=== PATIENT | female | born 2005 | race Caucasian/White ===

== ENCOUNTER 2024-04-04 21:02 | Emergency (ER) | payer OTHER, SELFPAY ==
[2024-04-04 21:03] VITALS: BP 114/73; PULSE 101; RESP 15; TEMP 36.8; O2SAT 100
[2024-04-04 21:04] VITALS: BMI 20.4
--- NOTE | 2024-04-04 21:42 | ED.VIS.LOWEX ---
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 Was playing field hockey tonight when a ball hit off her medial malleolus of her left ankle causing a laceration. Tetanus is up-to-date. This occurred 1 to 2 hours ago. She was able to finish the game. Chief Complaint: Laceration Informant: patient and parent Occured/Mechanism Mechanism/Context: Yes blunt trauma Onset/Context/Timing Onset: Today and Hours Context: Sudden Onset Timing: Continuous Quality of Pain: Sharp Current Severity: Mild Maximum Severity: Mild Associated Symptoms Associated Symptoms: Negative for Parasthesia, Weakness or Loss of Funtion Narrative Narrative: 19-year-old left ankle laceration medially. Hit with a field hockey ball playing a game. Tetanus Immunization: 5-10 years Prior similar symptoms: No Recent Illness/Hospitalization: No PFSH PFS Medical History Scoliosis Costal chondritis Home Medications ?Medication ?Instructions ?Recorded ?Last Taken ?Type meloxicam 15 mg tablet 15 mg PO DAILY 04/04/24 Unknown History spironolactone 100 mg tablet 100 mg PO DAILY 04/04/24 Unknown History Allergy/AdvReac Type Severity Reaction Status Date / Time No Known Allergies Allergy Verified 04/04/24 21:03 Social History Smoking Status: Never smoker ROS ROS ED ROS Narrative Denies recent illness. Constitutional Constitutional ED: Denies chills or fever(s) Eyes Eyes: Denies blurry vision ENT ENT ED: Denies ear pain Cardiovascular Cardiovascular: Denies chest pain Gastrointestinal Gastrointestinal: Denies abdominal pain Genitourinary Genitourinary ED: Denies dysuria or hematuria Musculoskeletal Musculoskeletal: Denies arthralgias or back pain Integumentary Denies abscess Neurologic Neurologic: Denies headache(s) Psychiatric Psychiatric: Denies anxiety or depression Endocrine Endocrinology: Denies polydipsia or polyphagia Hematologic/Lymphatic Hematologic/Lymphatic: Denies easy bleeding or easy bruising Allergic/Immunologic Allergic/Immunologic ED: Denies mouth swelling, tongue swelling or urticaria EXAM Physical Exam Narrative Exam Narrative: 19-year-old female vital signs are stable afebrile. H EENT exam unremarkable. Neck nontender no lymphadenopathy. Lungs clear to auscultation. Heart regular rhythm no murmur. Abdomen soft. Moving all 4 extremities. Neurovascular intact. Left ankle medial malleolus has about a 1 to 2 inch laceration on the medial aspect. Will need to be repaired. Minimal bleeding. No signal hematoma. No bony deformity. Full flexion extension of the ankle. Normal DP pulse. Able to wiggle her toes. Normal touch sensation. Achilles tendon intact. No bony deformity. No significant swelling. Const Vital Signs: 04/04/24 21:03 Temperature 98.2 F Temperature Source Oral Pulse Rate 101 H Respiratory Rate 15 Blood Pressure 114/73 Blood Pressure Mean 86 Pulse Ox 100 Oxygen Delivery Method Room Air Positive well nourished and well developed; Negative for obese, cachectic, contractures or unkempt General Appearance ED: well developed and NAD; Negative for unkempt, cachectic or contractures Nutritional Appearance: Negative for cachectic or obese HEENT Reports moist mucous membranes normocephalic and atraumatic; Negative for trauma or tenderness Eyes PERRL Neck full ROM and supple Thyroid: Negative for tender or other Lymph Lymphatic: Negative for other Chest Wall inspection of chest normal and palpation of chest normal Resp normal respiratory effort, no retractions and clear to auscultation bilaterally Auscultation: Negative for rales, rhonchi, wheezes or diminished lung sounds Cardio regular rhythm, S1 normal heart sound, S2 normal heart sound and no murmurs GI non-tender, non-distended and no masses Palpation: soft; Negative for tender or guarding Back/Spine no CVA tenderness Extremity normal to inspection and full ROM Extremity Narrative: Left ankle medial malleolus 1 to 2 inch laceration needs repaired. Otherwise normal range of motion. No deformity. No sign of swelling. Neurovascularly intact. Neuro oriented x3, CN's II-XII intact bilaterally and moves all extremities Sensorium / Orientation: alert, oriented to person, oriented to place and oriented to time Psych mental status grossly normal Appearance: Negative for unkempt Mood & Affect: Negative for anxious Skin no wounds Lesions: no lesions Rashes: no rashes Trauma: laceration MDM MDM MDM Narrative Medical decision making narrative: 19-year-old left medial malleolus laceration needs repaired. Let. Clean. Explored. Irrigated. Locally anesthetized with lidocaine. Repaired using 4-0 Ethilon suture. Patient does not need any imaging. I discussed that with her and her mom. They are comfortable with no x-rays being obtained. History & Record Review Discussion w/independent historian: Patient and Family Procedures Lacerations Left ankle medial malleolus laceration repair:: Length: 1.5 in Depth: Sub Q Shape: Linear Prep: Shure-Clens Laceration repair: Lidocaine, Local, Skin sutures and Wound explored Number of Sutures/[place]: 3 Suture Information: Ethilon, Simple and 4-0 Comment: Left medial malleolus laceration. Let applied. Then local anesthetized lidocaine. Pain with Shur-Clens. Washed and irrigated with saline. Explored. Closed using 3 simple interrupted 4-0 Ethilon sutures. Proper hemostasis wound closure obtained. Patient tolerated procedure well. Instructed on wound care and suture removal in 10 days. Discharge Plan Triage Chief Complaint: Laceration ED Provider: Braon Joseph Dx/Rx/DC Orders Clinical Impression: Laceration of ankle, left Instructions: ED Laceration, Foot: All Closures Prescriptions: No Action meloxicam 15 mg tablet 15 mg PO DAILY spironolactone 100 mg tablet 100 mg PO DAILY Primary Care Provider: Hermilo Stone,Out of Referrals: Hermilo Stone,Out of [Primary Care Provider] - Activity Restrictions/Additional Instructions: Keep dry and clean. You can shower but dried off well when you are done. Apply antibiotic ointment twice daily. Tylenol and/or Motrin for pain. Do not let it soak in water. Do not soak in the bathtub. Stitches out in 10 to 14 days. Watch for any signs of infection if you see redness, pus, streaks fever or significant swelling return. The [facility] hospital can take your stitches out. Print Language: Georgian Disposition Disposition: Home, Self Care
[2024-04-04] MEDS: Lidocaine 1% (20 ml mdv) 20 ML Vial 10 ML INFILT (21:59)
[2024-04-04] MEDS: Lidocaine/Epi/Tetracaine 50 ML 1 APPLIC TOPICAL (22:00)
== END 2024-04-04 22:56 | disposition home or self-care (01) ==
PROVIDERS: Emergency Provider Emergency Medicine; Visit Provider Emergency Medicine
DX: S91.012A Laceration without foreign body, left ankle, initial encounter (principal); Y93.65 Activity, lacrosse and field hockey
CPT/HCPCS: 12001; 99284; A4216

== ENCOUNTER 2025-02-26 21:59 | Emergency (ER) | payer BC, SELFPAY ==
[2025-02-26 22:00] VITALS: BP 128/88; PULSE 92; RESP 18; TEMP 36.8; O2SAT 100
--- NOTE | 2025-02-26 22:14 | ED.VIS.CHEST ---
HPI History of Present Illness Chief Complaint: Chest Other Detail of Chief Complaint: Left-sided chest pain with pleuritic component Informant: patient Onset/Context/Timing Onset: Hours (Approximately 3 hours prior to presentation) Activity at onset: sudden Timing: Intermittent Quality: Positive for Pain Location: Left Parasternal and Left Chest Current Severity: Gone Maximum Severity: Moderate Worsened By: Breathing Relieved By: - (Not breathing) Associated Symptoms: Negative for Nausea, Vomiting, Diaphoresis, Dyspnea, Cough, Fever, Lightheadedness, Acid Reflux or Palpitations Narrative Narrative: Patient is a 20-year-old female who presents with left-sided pleuritic pain. She points that the pain is superior to her left breast. She denies recent upper respiratory tract infection symptoms. She denies history of PE or DVT. She has no risk factors for either. She is not on hormonal therapy. She has not taken anything for it. Prior Similar Symptoms: No Recent Illness/Hospitalization: No CVD Risk Factors: Negative for Hypertension, Diabetes, Hypercholesterolemia, Family History 1' </=55 or Smoking PE Risk Factors: Negative for Recent Travel/Surgery, Recent Immobilization, Prior DVT or PE, Cancer or OCP + Smoking + >/=35 TAD Risk Factors: Negative for Marfan's Syndrome, Hypertension or Family History [facility] Medical History Scoliosis Costal chondritis Home Medications ?Medication ?Instructions ?Recorded ?Last Taken ?Type meloxicam 15 mg tablet 15 mg PO DAILY 04/04/24 Unknown History spironolactone 100 mg tablet 100 mg PO DAILY 04/04/24 Unknown History Allergy/AdvReac Type Severity Reaction Status Date / Time No Known Allergies Allergy Verified 02/26/25 21:59 Social History (Updated 02/26/25 @ 22:[address] Reese Peralta MD) household members: other details: College student Smoking Status: Never smoker ROS ROS ED Constitutional Constitutional ED: Denies chills, fever(s), subjective, sweats or weight loss ENT ENT ED: Denies ear pain, rhinorrhea or sore throat Cardiovascular Cardiovascular: Reports as per HPI; Denies orthopnea, palpitations or paroxysmal nocturnal dyspnea Respiratory/Chest Respiratory/Chest: Denies cough, dyspnea, dyspnea on exertion, orthopnea or paroxysmal nocturnal dyspnea Integumentary Denies rash Hematologic/Lymphatic Hematologic/Lymphatic: Denies easy bleeding or easy bruising EXAM Physical Exam Const Vital Signs: 02/26/25 22:00 Temperature 98.2 F Temperature Source Temporal Pulse Rate 92 Respiratory Rate 18 Blood Pressure 128/88 H Blood Pressure Mean 101 Pulse Ox 100 Oxygen Delivery Method Room Air Positive well nourished and well developed General Appearance ED: well developed and NAD HEENT Reports moist mucous membranes normocephalic and atraumatic Eyes PERRL and EOMs intact bilaterally General Eye ED: Negative for pale conjunctiva or scleral icterus Neck no lymphadenopathy and no JVD Chest Wall inspection of chest normal and palpation of chest normal Chest Narrative: There is pain outpatient 4th and 5th intercostal space on the left. This area is more tender than the area she pointed to. Resp normal respiratory effort and clear to auscultation bilaterally Resp Narrative: There is no friction rub. Breath sounds are symmetric and there is no rales, rhonchi or wheezing. There is no crepitus. Cardio regular rate, regular rhythm, S1 normal heart sound, S2 normal heart sound and no murmurs Extremity normal to inspection Neuro oriented x3 and CN's II-XII intact bilaterally Sensorium / Orientation: awake and alert Psych mental status grossly normal Skin no rashes or lesions noted and no wounds MDM MDM MDM Narrative Medical decision making narrative: Differential diagnosis pleurisy, costochondritis, PE, pneumonia. Since patient has normal vital signs based on study was published several decades ago no patient had had normal heart rate, respiratory rate, temperature and pulse ox was found to have infiltrate on x-ray therefore x-ray was not obtained. Patient is PERC negative and Wells score is 0. Therefore D-dimer was not obtained nor was there pursued to rule out PE since she is PERC negative and Wells score is 0. Since pain is reproducible there is a pleuritic component suspect this is costochondritis versus pleurisy. Treatment is the same and sats. She has no contraindication to NSAIDs. She does not have any ibuprofen or Aleve at her residence. She was given a dose of Naprosyn in the department. She was discharged to home safely and instructed the proper dose of ibuprofen or Aleve since it would be cheaper to purchase the medication as an OTC versus prescription. Differential Diagnosis Chest pain/SOB: pneumothorax Reason(s) pneumothorax less likely: Positive for bilateral breath sounds Discharge Plan Triage Chief Complaint: Chest Other ED Provider: Reese Peralta Dx/Rx/DC Orders Clinical Impression: Acute costochondritis Instructions: ED Chest Wall Pain, Costochondritis, ED Pleurisy Prescriptions: No Action meloxicam 15 mg tablet 15 mg PO DAILY spironolactone 100 mg tablet 100 mg PO DAILY Primary Care Provider: Hermilo Stone,Out of Referrals: [facility] [Other] [facility] [Group of Physicians] - 3-5 Days if not improving [facility] Doctor,Out of [Primary Care Provider] - Activity Restrictions/Additional Instructions: The dose of ibuprofen for you is 3 tablets every 8 hours for the next 3 to 5 days. If you purchase Aleve it would be 2 tablets every 12 hours for the next 3 to 5 days. Print Language: [place] Island[place] Disposition Disposition: Home, Self Care
[2025-02-26 22:36] VITALS: BP 111/77; PULSE 71; RESP 18; TEMP 36.6; O2SAT 99
--- OUTSIDE RECORDS SUMMARY | 2025-02-26 22:57 | XMS RPT_ITS | CCD ---
Author Organization [facility] Care Team Providers Care Respiratory Medicine Physician Name Role Phone Kayli Gastelum Unavailable Unavailable Unavailable GIO PALOMO Attending Unavailable KAYLI GASTELUM Referring Unavailable KAYLI GASTELUM Primary Care Unavailable GIO PALOMO Referring Unavailable KAYLI GASTELUM Primary Care Unavailable KAYLI GASTELUM Attending Unavailable KAYLI GASTELUM Primary Care Unavailable Baron Joseph Attending Unavailable [facility] Doctor, Out of Primary Care Unavailable Kayli Gastelum MD Primary Care Provider Beatrice Kimble MD Unavailable Fabian DE LA CRUZ, Dr. Leigh Emergency Provider [phone] Care Physician, No Primary Primary Care Provider Unavailable Allergies Allergy Classification Reported Allergen(s) Allergy Type Date of Onset Reaction(s) Facility (1 source) ALLERGIES NOT ON FILE; Translations: [ALLERGIES NOT ON FILE] Propensity to adverse reactions (disorder) [facility] 3 Repository Medications Current Medications Medication Drug Class(es) Dates Sig (Normalized) Sig (Original) ketoconazole 20 mg/ml medicated shampoo (1 source) Azole Antifungal Start: 01-30-2024 ketoconazole (NIZOral) 2 % shampoo Indications: Tinea versicolor Apply once a day 3 days in a row. Repeat in 1 week. Do not fill before January 30, 2024. 120 mL 3 01/30/2024 Active Start: 01-30-2024 ketoconazole ( NIZOral) 2 % shampoo Indications: Tinea versicolor Apply once a day 3 days in a row. Repeat in 1 week. Do not fill before January 30, 2024. 120 mL 3 01/30/2024 Active meloxicam 15 mg oral tablet (1 source) Nonsteroidal Anti-inflammatory Drug Start: 04-04-2024 take 1 tablet by mouth once daily Meloxicam 15 mg tablet Active 15 mg PO DAILY April 04, 2024 12:00am spironolactone 100 mg oral tablet (5 sources) Aldosterone Antagonist Start: 04-04-2024 take 1 tablet by mouth once daily Spironolactone 100 mg tablet Active 100 mg PO DAILY April 04, 2024 12:00am Start: 07-11-2017 Spironolactone 25 MG Oral Tablet Quantity: 30 Refills: 0 Ordered: 11-Jul-2017 DO Start : 11-Jul-2017 Active take 1 tablet by wilman th once daily spironolactone (Aldactone) 100 mg tablet Take 1 tablet (100 mg) by mouth once daily. Active Completed/Discontinued Medications Medication Drug Class(es) Dates Sig (Normalized) Sig (Original) adapalene 1 mg/ml topical cream (3 sources) Retinoid Start: 01-10-2018 Adapalene 0.1 % External Cream Quantity: 45 Refills: 0 Ordered: 10-Jan-2018 DO Start : 10-Jan-2018 Active Ethinyl Estradiol / Ferrous fumarate / Norethindrone (3 sources) Estrogen Start: 08-05-2020 take 1 tablet by mouth once daily Lo Loestrin Fe 1 MG-10 MCG / 10 MCG Oral Tablet TAKE 1 TABLET DAILY DIRECTED. Quantity: 1 Refills: 2 Ordered: 05-Aug-2020 Kayli Gastelum MD Start : 05-Aug-2020 Active Problems Active Problems Problem Classification Problem Date Documented Da te Episodic/Chronic Cardiac dysrhythmias (2 sources) Cardiac arrhythmia, unspecified; Translations: [Cardiac arrhythmia, unspecified] Onset: 01-23-2024 Chronic Menstrual disorders (3 sources) Irregular periods; Translations: [Irregular menstrual cycle] Chronic Open wounds of extremities (2 sources) Laceration without foreign body, left ankle, initial encounter; Translations: [Laceration of left ankle] Onset: 04-25-2024 04-12-2024 Episodic Other bone disease and musculoskeletal deformities (3 sources) Adolescent idiopathic scoliosis of thoracic spine; Translations: [Scoliosis [and kyphoscoliosis], idiopathic] Chronic Other bone disease and musculoskeletal deformities (1 source) Costal chondritis; Translations: [Chondrocostal junction syndrome [Tietze]] 02-26-2025 Episodic Other congenital anomalies (3 sources) History of congenital dislocation of hip; Translations: [Personal history of other (corrected) congenital malformations] Episodic Other ear and sense organ disorders (3 sources) Otalgia, left ear; Translations: [Otalgia of left ear] Episodic Other upper respiratory infections (3 sources) Viral upper respiratory tract infection; Translations: [Acute upper respiratory infections of unspecified site] Episodic Residual codes; unclassified (6 sources) Finding of body mass index; Translations: [Body Mass Index, pediatric, 5th percentile to less than 85th percentile for age] Episodic Syncope (3 sources) Vasovagal syncope; Translations: [Syncope and collapse] Episodic Past or Other Problems Problem Classification Problem Date Documented Da te Episodic/Chronic Immunizations and screening for infectious disease (7 sources) Vaccination needed; Translations: [Need for prophylactic vaccination and inoculation against unspecified single disease] 01-27-2024 Episodic Mycoses (4 sources) Pityriasis versicolor; Translations: [Pityriasis versicolor] 01-27-2024 Episodic Nonspecific chest pain (1 source) Anterior chest wall pain; Translations: [Other chest pain] 01-27-2024 Episodic Other lower respiratory disease (6 sources) H/O: respiratory disease; Translations: [Personal history of other diseases of respiratory system] Resolved: 02-07-2014 Episodic Results Test Name Value Interpretation Reference Range Facility Emergency Department Summary on 04-04-2024 Emergency Department Summary [facility] Medical Records Department [address] [place] [id number] Emergency Department Summary 04/04/24 MR#: [id number] Acct: [id number] Name: MARYANNE MEHTA Rep #: [id number] : 2005 19 From: Baron Joseph MD PCP: OUT OF TOWN DOCTOR Status:REG ER Location: ED HPI History of Present Illness HPI Narrative: 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 Was playing field hockey tonight when a ball hit off her medial malleolus of her left ankle causing a laceration. Tetanus is up-to-date. This occurred 1 to 2 hours ago. She was able to finish the game. Chief Complaint: Laceration Informant: patient and parent Occured/Mechanism Mechanism/Context: Yes blunt trauma Onset/Context/Timing Onset: Today and Hours Context: Sudden Onset Timing: Continuous Quality of Pain: Sharp Current Severity: Mild Maximum Severity: Mild Associated Symptoms Associated Symptoms: Negative for Parasthesia, Weakness or Loss of Funtion Narrative Narrative: 19-year-old left ankle laceration medially. Hit with a field hockey ball playing a game. Tetanus Immunization: 5-10 years Prior similar symptoms: No Recent Illness/Hospitalization: No PFSH PFSH Medical History Scoliosis Costal chondritis Home Medications ???Medication ???Instructions ???Recorded ???Last Taken ???Type meloxicam 15 mg tablet 15 mg PO DAILY 04/04/24 Unknown History spironolactone 100 mg tablet 100 mg PO DAILY 04/04/24 Unknown History Allergy/AdvReac Type Severity Reaction Status Date / Time No Known Allergies Allergy Verified 04/04/24 21:03 Social History Smoking Status: Never smoker ROS ROS ED ROS Narrative Denies recent illness. Constitutional Constitutional ED: Denies chills or fever(s) Eyes Eyes: Denies blurry vision ENT ENT ED: Denies ear pain Cardiovascular Cardiovascular: Denies chest pain Gastrointestinal Gastrointestinal: Denies abdominal pain Genitourinary Genitourinary ED: Denies dysuria or hematuria Musculoskeletal Musculoskeletal: Denies arthralgias or back pain Integumentary Denies abscess Neurologic Neurologic: Denies headache(s) Psychiatric Psychiatric: Denies anxiety or depression Endocrine Endocrinology: Denies polydipsia or polyphagia Hematologic/Lymphatic Hematologic/Lymphatic: Denies easy bleeding or easy bruising Allergic/Immunologic Allergic/Immunologic ED: Denies mouth swelling, tongue swelling or urticaria EXAM Physical Exam Narrative Exam Narrative: 19-year-old female vital signs are stable afebrile. H EENT exam unremarkable. Neck nontender no lymphadenopathy. Lungs clear to auscultation. Heart regular rhythm no murmur. Abdomen soft. Moving all 4 extremities. Neurovascular intact. Left ankle medial malleolus has about a 1 to 2 inch laceration on the medial aspect. Will need to be repaired. Minimal bleeding. No signal hematoma. No bony deformity. Full flexion extension of the ankle. Normal DP pulse. Able to wiggle her toes. Normal touch sensation. Achilles tendon intact. No bony deformity. No significant swelling. Const Vital Signs: 04/04/24 21:03 Temperature 98.2 F Temperature Source Oral Pulse Rate 101 H Respiratory Rate 15 Blood Pressure 114/73 Blood Pressure Mean 86 Pulse Ox 100 Oxygen Delivery Method Room Air Positive well nourished and well developed; Negative for obese, cachectic, contractures or unkempt General Appearance ED: well developed and NAD; Negative for unkempt, cachectic or contractures Nutritional Appearance: Negative for cachectic or obese HEENT Reports moist mucous membranes normocephalic and atraumatic; Negative for trauma or tenderness Eyes PERRL Neck full ROM and supple Thyroid: Negative for tender or other Lymph Lymphatic: Negative for other Chest Wall inspection of chest normal and palpation of chest normal Resp normal respiratory effort, no retractions and clear to auscultation bilaterally Auscultation: Negative for rales, rhonchi, wheezes or diminished lung sounds Cardio regular rhythm, S1 normal heart sound, S2 normal heart sound and no murmurs GI non-tender, non-distended and no masses Palpation: soft; Negative for tender or guarding Back/Spine no CVA tenderness Extremity normal to inspection and full ROM Extremity Narrative: Left ankle medial malleolus 1 to 2 inch laceration needs repaired. Otherwise normal range of motion. No deformity. No sign of swelling. Neurovascularly intact. Neuro oriented x3, CN's II-XII intact bilaterally and moves all extremities Sensorium / Orientation: alert, oriented to person, oriented to place and oriented to time Psych mental status grossly normal Appearance: Negative for (more content not included)... Normal [facility] PEDS ECG 15-LEADon PEDS ECG 15-LEAD Ventricular Rate 84 Atrial Rate 84 P-R Interval 118 QRS Duration 98 Q-T Interval 372 QTC Calculation(Bazett) 439 P Charleston 64 R Charleston 84 T Charleston 42 QRS Count 13 Q Onset 224 P Onset 165 P Offset 221 T Offset 410 QTC Fredericia 416 Diagnosis Normal sinus rhythm with sinus arrhythmia Right ventricular conduction delay No previous ECGs available Confirmed by Gio Palomo ([id number]) on 01/24/2024 8:26:06 AM Normal [facility] PEDS TRANSTHORACIC ECHO (TTE ) COMPLETEon 01-23-2024 PEDS TRANSTHORACIC ECHO (TTE) COMPLETE [facility] Pediatric Echo Lab [address] [facility], [facility] [place] [address] Patient Name: MARYANNE MEHTA Study Location: [facility] Study Date: 01/23/2024 Patient Status: Outpatient MRN/PID: [id number] Study Type: PEDS TRANSTHORACIC ECHO (TTE) COMPLETE Date of : 2005 Age: 18 years Gender: F Height/Weight: 164.00 cm / 51.40 kg BSA: 1.55 m2 Blood Pressure: 120 / 75 mmHg Reading Physician: Araceli Winn MD Ordering Provider: [id number] [facility] [employer]ker[employer] Branch Manager: Bethanie Nicolas CS,AE Diagnosis/ICD: Other chest pain-R07.89 Indications: Chest pain, arrhythmia Summary: Complete echocardiogram examination with two-dimensional imaging, M-mode, color-Doppler, and spectral Doppler was performed. 1. Normal cardiac segmental anatomy. 2. Cannot exclude a small unim-yq-xrrin shunt at the atrial level on limited imaging. 3. The origins of the coronary arteries appear normal. 4. Normal left ventricular size, no hypertrophy and hyperdynamic systolic function. 5. Global LV strain is -23.2 % - normal. 6. Qualitatively normal right ventricular size and normal systolic function. 7. Normal-sized proximal left and right pulmonary arteries, there is trivial continuous flow in diastole by color Doppler. 8. Unable to estimate the right ventricular systolic pressure from the tricuspid regurgitant jet. 9. Left aortic arch, right subclavian artery not visualized. 10. Limited imaging of the innominate vein. 11. No pericardial effusion. Segmental Anatomy, Cardiac Position and Situs: Normal cardiac segmental anatomy. S,D,S. The heart position is within the left hemithorax. Systemic Veins: The superior vena cava is right-sided and drains normally to the right atrium. The inferior vena cava is right-sided and inserts into the right atrium normally. Limited imaging of the innominate vein. Pulmonary Veins: Two left and two right pulmonary veins are demonstrated draining normally to the left atrium. Atria: Cannot exclude a small nvxa-as-tzwrv shunt at the atrial level on limited imaging. The right atrium is normal in size. The left atrium is normal in size. Mitral Valve: Normal mitral valve Doppler pattern. There is no evidence of mitral valve stenosis. There is no mitral valve regurgitation. Tricuspid Valve: The tricuspid valve is normal. Normal tricuspid valve Doppler pattern. There is trivial tricuspid valve regurgitation. Unable to estimate the right ventricular systolic pressure from the tricuspid regurgitant jet. Left Ventricle: Global LV strain is -23.2 % - normal. Normal left ventricular size, no hypertrophy and hyperdynamic systolic function. Right Ventricle: Qualitatively normal right ventricular size and normal systolic function. Ventricular Septum: No ventricular septal defects were seen. Aortic Valve: The aortic valve is normal. Normal aortic valve Doppler pattern. There is no aortic valve regurgitation. Left Ventricular Outflow Tract: There is no left ventricular outflow tract obstruction. Pulmonary Valve: The pulmonary valve is normal. Normal pulmonary valve Doppler pattern. There is trivial pulmonary valve regurgitation. Right Ventricular Outflow Tract: There is no right ventricular outflow tract obstruction. Aorta: The aortic root is normal in size. The ascending aorta, transverse arch and descending aorta appear unobstructed. Left aortic arch, right subclavian artery not visualized. There is a normal sized ascending aorta. There is no coarctation of the aorta. There is normal Doppler pattern in the abdominal aorta. Pulmonary Arteries: Normal-sized proximal left and right pulmonary arteries, there is trivial continuous flow in diastole by color Doppler. Ductus Arteriosus: No patent ductus arteriosus. Coronary Arteries: The origins of the coronary arteries appear normal. Pericardium: There is no pericardial effusion. LV (M-mode) Z-score IVSd: 0.72 cm -1.24 LVIDd: 4.63 cm -0.19 LVIDs: 2.83 cm -0.63 LVPWd: 0.58 cm -2.25 LV mass (ASE cira.): 90.66 g -1.81 LV mass index: 29.61 g/m^2.7 LV (2D) LV major d, A4C: 6.98 cm LV major d, A2C: 7.54 cm Left Ventricular Systolic Function LV SF (M-mode): 39 % LV EF (2D MOD A4C): 68 % LV EF (2D MOD A2C): 73 % LV EF (2D MOD Biplane): 71 % LV GLS: -23.2 % LV vol s, MOD A4C: 26.6 ml LV vol s, MOD A2C: 28.6 ml LV vol d, MOD A4C: 83.4 ml LV vol d, MOD A2C: 106.4 ml LV Diastolic Function Lateral annulus e': 0.13 m/s Lateral a' 0.10 m/s Mitral annulus medial e': 0.10 m/s Mitral annulus medial a' 0.07 m/s Lateral S' (MV Free Wall S'): 0.10 m/s Medial S' (MV Septal S'): 0.07 m/s RV Diastolic Function RV S' 0.12 m/s 2D measurements Z-score Aortic (more content not included)... [facility] Coronavirus 2019 RNA by PCR, Symptomaticon 06-23-2021 Date and time of symptom onset [id number] [facility] Anywhere to Go Work Phone: Coronavirus 2019 RNA by PCR, Symptomatic Not detected Normal See Below [facility] n Work Phone: Comment on above: SOURCE: Nasal, Nasop haryngealReference Range: Not Detected.This assay is designed to detect the N, ORF1ab and/or S genes of SARS-CoV-2 via nucleic acid amplification. A Negative (NOT DETECTED) result does not preclude 2019-nCoV infection since the adequacy of sample collection and/or low viral burden may result in presence of viral nucleic acids below the clinical sensitivity of this test method. Negative (NOT DETECTED) result should not be used as the sole basis for treatment or other patient management decisions. Rather negative results should be combined with clinical observations, patient history, and epidemiological information to make patient management decisions.Fact sheet for providers: https://www.fda.gov/media/230381/downloadFact sheet for patients: https://www.fda.gov/media/242004/downloadThis test has received FDA Emergency Use Authorization (EUA) and has been verified by [facility] ([facility]). This test is only authorized for the duration of time that circumstances exist to justify the authorization of the emergency use of in vitro diagnostic tests for the detection of SARS-CoV-2 virus and/or diagnosis of COVID-19 infection under section 564(b)(1) of the Act, 21 U.S.C. 360bbb-3(b)(1), unless the authorization is terminated or revoked sooner. [facility] is certified under CLIA-88 as qualified to perform high complexity testing. Testing is performed in the [facility] laboratories located at [address] [place] [address]. Pediatric Medicine 17on 0 06-23-2021 Pediatric Medicine 06-05 Diagnosis/Problems Assessed Contact with or exposure to viral disease (V01.79) (Z20.828) Viral URI with cough (465.9) (J06.9) Orders Contact with or exposure to viral disease Coronavirus 2019 RNA by PCR, Symptomatic; Status:Active; Requested for:23Jun2021; Perform:Lab Services - Lab To Draw (Non-Blood Test); Due:21Sep2021;Ordered; Stat; For:Contact with or exposure to viral disease; Ordered By:Beatrice Kimble; ? : No RESIDENT IN CONGREGATE CARE SETTING? : No ICU? : No HOSPITALIZED (OR PLANNED TO BE ADMITTED)? : No EMPLOYED IN HEALTHCARE? : No FIRST COVID NASAL SWAB TEST? : No Symptom 1 : Cough DATE OF SYMPTOM ONSET? : 22Jun2021 IS THE PATIENT SYMPTOMATIC DEFINED BY THE CDC (FEVER>100, NEW WORSENING COUGH OR SHORTNESS OF BREATH, NEW LOSS OF TASTE OR SMELL, SORE THROAT, DIARRHEA, BODY ACHES/MALAISE, HEADACHE, NAUSEA/VOMITING, OR RUNNY NOSE/CONGESTION)? : Yes Patient Discussion/Summary Rest and drink lots of fluids. Isolate until I call with test results. Chief Complaint sore throat and cough started yesterday History of Present Illness 1 day history of cough, sore throat. No fever. She said she does not feel very congested. No headache or body aches. No vomiting or diarrhea. Appetite is still good. She is urinating normally. No Covid exposures known. She wants to be tested before she goes back to school. Active Problems Problems Adolescent idiopathic scoliosis of thoracic region (737.30) (M41.124) BMI (body mass index), pediatric, 5% to less than 85% for age (V85.52) (Z68.52) Encounter for routine child health examination without abnormal findings (V20.2) (Z00.129) Menstrual irregularity (626.4) (N92.6) Need for vaccination (V05.9) (Z23) Pediatric body mass index (BMI) of 5th percentile to less than 85th percentile for age (V85.52) (Z68.52) Tinea versicolor (111.0) (B36.0) Vasovagal syncope (780.2) (R55) Viral URI with cough (465.9) (J06.9) Past Medical History Problems History of acute pharyngitis (V12.69) (Z87.09) Resolved Date: 07 Feb 2014 History of pharyngitis (V12.69) (Z87.09) Resolved Date: 07 Feb 2014 History of Otalgia of left ear (388.70) (H92.02) Personal history of developmental dysplasia of the hip (V13.69) (Z87.76) Surgical History Problems History of Open Subcutaneous Tenotomy Of Hip Adductor Had this procedure on the R hip in August 2004 for DDH. Family History Sister Family history of reactive airway disease (V17.5) (Z82.5) Social History Problems Never a smoker Allergies Medication No Known Drug Allergies Recorded By: Lorna Cook; 12/10/2013 10:02:16 AM Current Meds Medication NameInstruction Adapalene 0.1 % External Cream Lo Loestrin Fe 1 MG-10 MCG / 10 MCG Oral TabletTAKE 1 TABLET DAILY DIRECTED. Spironolactone 25 MG Oral Tablet Vitals Vital Signs Recorded: 23Jun2021 03:19PM Znkbowngxwk10.6 F Jcnhak469.2 lb 2-20 Weight Passfkgczl52 % Physical Exam Constitutional - Well developed, well nourished, well hydrated and no acute distress. Voice is slightly hoarse. Head and Face - Normocephalic, atraumatic. Eyes - Conjunctiva and lids normal. Ears, Nose, Mouth, and Throat - External inspection of ears and nose: Abnormal. TM's normal color, normal landmarks, no fluid, non-retracted. External auditory canals without swelling, redness or tenderness. Pharyngeal mucosa normal. No erythema, exudate, or lesions. Mucous membranes moist. Slight nasal congestion with clear postnasal drainage. Pharynx is nonerythematous. No lesions or exudate noted. Neck - Full range of motion. No significant cervical adenopathy. No adenopathy. Pulmonary - No grunting, flaring or retractions. Clear to auscultation. Cardiovascular - Regular rate and rhythm. No significant murmur. Abdomen - Soft, non-tender, no masses. No hepatomegaly or splenomegaly. Signatures Electronically signed by : Beatrice Kimble MD; Jun 23 2021 3:41PM EST (Author) Normal Cost Effective Data 10-17-2020 [employer] [facility] HNO ID: [id number] Author: RT Gabe(Balta) Service: Radiology Author Type: Geek [employer] Agent Type: Allied Health Filed: 10/17/2020 12:06 AM Note Text: Radiology Service Progress Note PATIENT NAME: Maryanne Mehta DATE OF SERVICE: October 17, 2020 TIME: 12:05 AM PATIENT IDENTITY VERIFICATION COMPLETED USING TWO (2) IDENTIFIERS: Name and Date of confirmed by patient verbally. FALL SCREENING: Has the patient had 2 falls in the last year or 1 fall with injury or currently using an Ambulatory Assistive Device (Walker, Cane, Wheelchair, Crutches, etc.)? Emergency Room Patient: Screened in ED PATIENT GENDER DATA: Female. status: : No status: NO. PATIENT RELEVANT IMPLANT DATA REVIEWED: Not Applicable RADIOLOGY DEPARTMENT: General X-ray: Exam(s) Completed: Chest X-Ray PERIPHERAL IV DATA: Not applicable SIGNED BY: RT Gabe(R) October 17, 2020 12:05 AM Normal [facility] ED NOTEon 10-17-2020 ED NOTE HNO ID: [id number] Author: Sherrie Hanna RN Service: Emergency Medicine Author Type: Registered Nurse Type: ED Notes Filed: 10/17/2020 12:35 AM Note Text: Watching TV wiyth mom, c/o pain under left breast when I take a deep breath, no sob, no distress, skin AND respirations normal Normal [facility] ED NOTE HNO ID: [id number] Author: Beatrice Jones RN Service: ? Author Type: Registered Nurse Type: ED Notes Filed: 10/16/2020 11:40 PM Note Text: Pt presents at this time, along with parent, with c/o chest pain with deep breath for approx 1 hours. Pt is alert and oriented x 3. Speech is clear and coherent. Skin color is normal for race. Facial features are symmetrical. Pt able to answer all questions appropriately. Respirations are regular and unlabored. Lungs CTA. Heart rate regular. Radial pulses strong bilaterally. Cap refill less than 3 seconds. BS x 4 present, abdomen soft, non tender and non distended. Pt is able to ambulate with an upright and steady gait w/o assistance. Normal [facility] ED NOTE HNO ID: [id number] Author: Beatrice Jones RN Service: ? Author Type: Registered Nurse Type: ED Notes Filed: 10/16/2020 11:22 PM Note Text: Pt presents at this time with c/o chest pain, left sided with deep breath for approx 1 hours. Pt denies pain at rest. Normal [facility] ED PROV NOTEon 10-17-2020 ED PROV NOTE HNO ID: [id number] Author: Alina Parrish DO Service: Emergency Medicine Author Type: Physician Type: ED Provider Notes Filed: 10/17/2020 12:56 AM Note Text: ED Provider Note Patient Name: Maryanne Mehta SERVICE DATE: 10/16/20 History Patient presents with: Chest Pain: left with deep breath - 1 hour This is a 15-year-old female presents to the emergency department with complaint of left-sided anterior chest pain for the last hour. Patient states she was sitting in bed when she developed pain over the left chest that is worse with deep inspiration. She denies associated shortness of breath. She did workout today and did exercises with weights of her upper body. She does state that she does this weekly and this is not abnormal for her. Patient states that she is currently not on control and has had no recent travel. No calf swelling or tenderness. She states that the pain is mainly worse when she takes a deep breath on the left side. No associated abdominal pain. No other significant complaints. PAST MEDICAL HISTORY Diagnosis Date - Scoliosis PAST SURGICAL HISTORY Procedure Laterality Date - HIP SURGERY HX Bilateral displasia No family history on file. Social History Tobacco Use - Smoking status: Never Smoker - Smokeless tobacco: Never Used Vaping Use - Vaping Use: Never used Substance and Sexual Activity - Alcohol use: Never - Drug use: Never - Sexual activity: Not on file ALLERGIES No Known Allergies Review of Systems Constitutional: Negative for appetite change, chills, diaphoresis, fatigue and fever. HENT: Negative for ear pain, sinus pressure, sore throat and trouble swallowing. Eyes: Negative for photophobia, pain and visual disturbance. Respiratory: Negative for cough, shortness of breath and wheezing. Cardiovascular: Positive for chest pain. Negative for palpitations and leg swelling. Gastrointestinal: Negative for abdominal pain, constipation, diarrhea and nausea. Genitourinary: Negative for dysuria, flank pain, frequency and hematuria. Musculoskeletal: Negative for back pain, joint swelling, myalgias and neck stiffness. Skin: Negative for pallor and rash. Neurological: Negative for dizziness, speech difficulty, numbness and headaches. Psychiatric/Behavioral: Negative for agitation, confusion, self-injury, sleep disturbance and suicidal ideas. Physical Exam BP 110/79 Pulse 89 Temp (Src) 97.9 (Temporal Artery) Resp 18 Ht 5' 4 (1.63m) Wt 105 lb (47.6kg) SpO2 100% LMP 09/28/2020 BMI 18.01 kg/(m2). O2 Therapy: Room Air Physical Exam Constitutional: General: She is not in acute distress. Appearance: She is well-developed. HENT: Head: Normocephalic and atraumatic. Right Ear: External ear normal. Left Ear: External ear normal. Nose: Nose normal. Eyes: General: No scleral icterus. Right eye: No discharge. Left eye: No discharge. Conjunctiva/sclera: Conjunctivae normal. Pupils: Pupils are equal, round, and reactive to light. Neck: Thyroid: No thyromegaly. Vascular: No JVD. Trachea: No tracheal deviation. Cardiovascular: Rate and Rhythm: Normal rate and regular rhythm. Heart sounds: Normal heart sounds. No murmur heard. No friction rub. No gallop. Pulmonary: Effort: Pulmonary effort is normal. No respiratory distress. Breath sounds: Normal breath sounds. No stridor. No wheezing or rales. Chest: Chest wall: No tenderness. Abdominal: General: There is no distension. Palpations: There is no mass. Tenderness: There is no abdominal tenderness. There is no guarding or rebound. Musculoskeletal: General: No tenderness or deformity. Normal range of motion. Cervical back: Normal range of motion and neck supple. Lymphadenopathy: Cervical: No cervical adenopathy. Skin: General: Skin is warm and dry. Capillary Refill: Capillary refill takes less than 2 seconds. Coloration: Skin is not pale. Findings: No erythema or rash. Neurological: General: No focal deficit present. Mental Status: She is alert and oriented to person, place, and time. Cranial Nerves: No cranial nerve deficit. Motor: No abnormal muscle tone. Coordination: Coordination normal. Deep Tendon Reflexes: Reflexes are normal and symmetric. Reflexes normal. Psychiatric: Behavior: Behavior normal. Thought Content: Thought content normal. Judgment: Judgment normal. Diagnostic Testing ED Labs Ordered and Reviewed - No data to display Procedures ED Course / Clinical Impression Clinical Impressions as of Oct 17 54 Chest pain, unspecified type Right bundle branch block (RBBB) on electrocardiogram (ECG) MDM / Disposition / Plan This is a 15-year-old female presents to the emergency department with left-sided anterior chest pain deep inspiration. Vitals are stable and she is currently not on control. She does rule out with the PERC rule for pulmonary embolism. E (more content not included)... Normal [facility] XR CHEST 2V FRONTAL/LATon XR CHEST 2V FRONTAL/LAT * * *Final Report* * * DATE OF EXAM: Oct 17 2020 12:04AM ANX [id number] - XR CHEST 2V FRONTAL/LAT / PROCEDURE REASON: Chest pain * * * * Physician Interpretation * * * * EXAMINATION: CHEST RADIOGRAPH (2 VIEW FRONTAL and LATERAL) CLINICAL HISTORY: Left chest pain with deep breathing for approximately 1 hour. MQ: [id number] EXAM DATE/TIME: 10/17/2020 12:04 AM COMPARISON: No relevant prior studies available. RESULT: Normal cardiac size and morphology. Left aortic arch. Lungs are clear. There is no pneumothorax or pleural effusion. The upper abdomen is unremarkable. Scoliosis with a convex left upper thoracic and convex right lower thoracic component. Although incompletely imaged at its caudal extent the convex left thoracic component measures approximately 31 degrees, T2-T8 and the estimated convex right lower thoracic component measures approximately 33 degrees, T8-L1. There is straightening of the expected thoracic kyphosis. IMPRESSION: 1. No acute radiographic abnormality. 2. Significant scoliosis. Unit Supervisor: PSCB Transcribe Date/Time: Oct 17 2020 12:43A Dictated by : ROBYN CARTER MD This examination was interpreted and the report reviewed and electronically signed by: ROBYN CARTER MD on Oct 17 2020 12:49AM EST [id number] Normal [facility] Pediatric Medicine -17on 0 08-01-2020 Pediatric Medicine -17 Diagnosis/Problems Assessed Menstrual irregularity (626.4) (N92.6) Orders Menstrual irregularity Activated Partial Thromboplastin Time; Status:Active; Requested for:01Aug2020; Perform:Lab Services - Lab To Draw (Blood Test); Due:30Oct2020;Ordered; For:Menstrual irregularity; Ordered By:Kayli Gastelum; Complete Blood Count + Differential; Status:Active; Requested for:01Aug2020; Perform:Lab Services - Lab To Draw (Blood Test); Due:30Oct2020;Ordered; For:Menstrual irregularity; Ordered By:Kayli Gastelum; Comprehensive Metabolic Panel; Status:Active; Requested for:01Aug2020; Perform:Lab Services - Lab To Draw (Blood Test); Due:30Oct2020;Ordered; For:Menstrual irregularity; Ordered By:Kayli Gastelum; Ferritin, Serum; Status:Active; Requested for:01Aug2020; Perform:Lab Services - Lab To Draw (Blood Test); Due:30Oct2020;Ordered; For:Menstrual irregularity; Ordered By:Kayli Gastelum; IO UA (nonautomated w/o microscopy); Status:Complete - Retrospective Authorization; Done: [id number] 10:23AM Performed:In Office; Due:30Oct2020; Last Updated By:Lorna Cook; 08/01/2020 10:24:18 AM;Ordered; For:Menstrual irregularity; Ordered By:Kayli Gastelum; TSH WITH REFLEX TO FREE T4 IF ABNORMAL; Status:Active; Requested for:01Aug2020; Perform:Lab Services - Lab To Draw (Blood Test); Due:30Oct2020;Ordered; For:Menstrual irregularity; Ordered By:Kayli Gastelum; Unlinked Continue: Adapalene 0.1 % External Cream Dispense: 30 Days ; #:45; Refill: 0; JAGDISH = N; Record; Last Updated By: Lorna Cook; 08/01/2020 9:40:47 AM Continue: Spironolactone 25 MG Oral Tablet Dispense: 30 Days ; #:30; Refill: 0; JAGDISH = N; Record; Last Updated By: Lorna Cook; 08/01/2020 9:40:47 AM Patient Discussion/Summary Her periods are definitely coming to frequently. Sometimes this is due to a big weight fluctuation or change in activity neither of which apply to her. We are going to check some labs just to make sure there are no other abnormalities. If her periods continue like this where she is becoming anemic we can refer her onto [facility] [employer] [facility] or we can try cycling her on control for 6 to 8 months to see how she does. We will discuss this more when we get her labs back. Provider Impression About 35 minutes was spent with Maryanne and her mother reviewing symptoms and getting history today. Chief Complaint irregular periods History of Present Illness Over the last 2 months Maryanne noted that her periods are coming more frequently. She has been having her menstrual cycles for several years now. They are usually once a month about 28 days apart and last about 5 or 6 days. She feels her flow at times is pretty heavy she will have to change her pad every 3 hours. She has slight cramping the first few days but she stays active in her sports and activity. Since May her periods have been occurring every 2 weeks. She had a cycle early in May then again from 06 11-06 17. She then started another shorter cycle from June 30 to July 02. Then she had a longer. From July 20 to July 25. She is a very active girl and plays field hockey throughout this year both indoor and outdoor. She has not had any decrease in her activity. She has not had any recent weight loss or gain. There is a family history of thyroid disorder in mom her aunt and her grandmother. There is no family history of any bleeding or clotting disorders. She does have a boyfriend but they are not sexually active. She reports that she has not had any recent fevers chills or shakiness. She has not had any lightheadedness or passing out. She is eating well and she does at least 3 meals a day and several snacks. Review of Systems All other systems are reviewed and are negative Active Problems Problems Adolescent idiopathic scoliosis of thoracic region (737.30) (M41.124) BMI (body mass index), pediatric, 5% to less than 85% for age (V85.52) (Z68.52) Encounter for routine child health examination without abnormal findings (V20.2) (Z00.129) Need for vaccination (V05.9) (Z23) Pediatric body mass index (BMI) of 5th percentile to less than 85th percentile for age (V85.52) (Z68.52) Tinea versicolor (111.0) (B36.0) Vasovagal syncope (780.2) (R55) Viral URI with cough (465.9) (J06.9) Past Medical History Problems History of acute pharyngitis (V12.69) (Z87.09) Resolved Date: 07 Feb 2014 History of pharyngitis (V12.69) (Z87.09) Resolved Date: 07 Feb 2014 History of Otalgia of left ear (388.70) (H92.02) Personal history of developmental dysplasia of the hip (V13.69) (Z87.76) Surgical History Problems History of Open Subcutaneous Tenotomy Of Hip Adductor Had this procedure on the R hip in August 2004 for DDH. Family History Sister Family history of reactive airway disease (V17.5) (Z82.5) Social History Problems Never a smoker Allergies Medication No Known Drug Allergies Recorded By: Lorna Cook; 12/10/2013 10:02:16 AM Current Meds Medication NameInstr (more content not included)... Normal [facility] Vital Signs Date Time Vital Sign Value Performing Clinician Facility 02-26-2025 22:36-0400 Body temperature 98 [degF] Dr. Reese Peralta MD Work Phone: [phone] [place] [address] 02-26-2025 22:36-0400 Diastolic blood pressure 77 mm[Hg] Dr. Reese Peralta MD Work Phone: 9(434)964-088908 [place] [address] 02-26-2025 22:36-0400 Heart rate 71 /min Dr. Reese Peralta MD Work Phone: 6(049)392-974908 [place] [address] 02-26-2025 22:36-0400 Respiratory rate 18 /min Dr. Reese Peralta MD Work Phone: 9(135)651-529408 [place] [address] 02-26-2025 22:36-0400 SaO2% (BldA) [Mass fraction] 99 % Dr. Reese Peralta MD Work Phone: 9(223)[phone] [place] [address] 02-26-2025 22:36-0400 Systolic blood pressure 111 mm[Hg] Dr. Reese Peralta MD Work Phone: 0([phone])[phone] [place] [address] 02-26-2025 22:00-0400 Body height 162.[address] Reese Peralta MD Work Phone: 6(436)231-881508 [place] [address] 02-26-2025 22:00-0400 Body mass index (BMI) [Ratio] 20 kg/m2 Dr. Reese Peralta MD Work Phone: 1(373)310-350508 [place] [address] 02-26-2025 22:00-0400 Body weight 52.[address] Reese Peralta MD Work Phone: 9(435)[phone] [place] [address] 01-27-2024 09:05-0400 Body height 163.8 cm Kayli Gastelum MD Work Phone: [facility] 01-27-2024 09:05-0400 Body mass index (BMI) [Ratio] 18.79 kg/m2 Kayli Gastelum MD Work Phone: [facility] 01-27-2024 09:05-0400 Body weight 50.44 kg Kayli Gastelum MD Work Phone: [facility] 01-27-2024 09:05-0400 Diastolic blood pressure 60 mm[Hg] Kayli Gastelum MD Work Phone: [facility] 01-27-2024 09:05-0400 Heart rate 68 /min Kayli Gastelum MD Work Phone: [facility] 01-27-2024 09:05-0400 Systolic blood pressure 94 mm[Hg] Kayli Gastelum MD Work Phone: [facility] 06-23-2021 15:19-0500 Body temperature 98.6 [degF] Kayli Gastelum Work Phone: [facility] [employer] [email or web address] [employer] [employer] Work Phone: 06-23-2021 15:19-0500 Body weight 49.99 kg Kayli Gastelum Work Phone: [facility] [employer] [email or web address] [employer] [employer] Work Phone: 06-23-2021 15:19-0500 24 1 Kayli Gastelum Work Phone: [email or web address] [employer] Work Phone: Comment on above: 2-20_WPerc Encounters Encounter Date Encounter Type Care Provider Facility Start: 02-26-2025 End: 02-26-2025 Emergency department patient visit Dr. Reese Peralta MD Work Phone: -Emergency Department Work Phone: Start: 04-04-2024 End: 04-04-2024 Emergency department patient visit Baron Joseph Facility:[facility] Start: 01-27-2024 End: 01-27-2024 ambulatory [facility] Start: 01-27-2024 End: 01-27-2024 Encounter for routine child health examination with abnormal findings [facility] Start: 01-27-2024 End: 01-27-2024 Patient encounter status Kayli Gastelum MD Work Phone: [facility] Work Phone: Start: 01-27-2024 End: 01-27-2024 Periodic preventive med est patient 18-39 yrs Kayli Gastelum MD Work Phone: [facility] Comment on above: Encounter for well a dolescent visit with abnormal findings (Primary Dx); Tinea versicolor; Need for vaccination; Costochondral chest pain Start: 01-23-2024 End: 01-23-2024 ambulatory [facility] Start: 01-26-2022 AUDIT Kayli gordon [facility] Work Phone: Start: 06-24-2021 Chart Update Kayli gordon Work Phone: [facility] Work Phone: Start: 06-23-2021 Office outpatient vi sit 15 minutes Kayli Gastelum [facility] Work Phone: Patient encounter status [facility] Work [facility]: Procedures Date Procedure Procedure Detail Performing Clinician Open Subcutaneous Te notomy Of Hip Adductor Kayli Gastelum Work Phone: Plan of Treatment Date Care Activity Detail Author Start: 02-16-2054 Zoster Vaccines (1 o f 2) Zoster Vaccines (1 of 2) [facility] Start: 01-08-2030 DTaP/Tdap/Td Vaccine s (8 - Td or Tdap) DTaP/Tdap/Td Vaccines (8 - Td or Tdap) [facility] Start: 02-26-2025 [facility] Start: 02-19-2024 Influenza vaccination Influenza Vacc ine (#1) [facility] Start: 01-27-2024 End: 01-26-2025 25-hydroxyvitamin D3 [Mass/volume] in Serum or Plasma Vitamin D 25-Hydroxy,Total (for eval of Vitamin D levels) Lab Routine Encounter for well adolescent visit with abnormal findings Expected: 01/27/2024 (Approximate), Expires: 01/26/[address] [facility] Work Phone: Comment on above: Expected: 01/27/2024 (Approximate), Expires: 01/26/2025 Start: 01-27-2024 End: 01-26-2025 CBC W Auto Differential panel - Blood CBC and Auto Differential Lab Routine Encounter for well adolescent visit with abnormal findings Expected: 01/27/2024 (Approximate), Expires: 01/26/2025 [facility] Work Phone: Comment on above: Expected: 01/27/2024 (Approximate), Expires: 01/26/2025 Start: 01-27-2024 End: 01-26-2025 Comprehensive metabolic 2000 panel - Serum or Plasma Comprehensive metabolic panel Lab Routine Encounter for well adolescent visit with abnormal findings Expected: 01/27/2024 (Approximate), Expires: 01/26/[address] [facility] Work Phone: Comment on above: Expected: 01/27/2024 (Approximate), Expires: 01/26/2025 Start: 02-18-2023 COVID-19 Vaccine ( season) COVID-19 Vaccine ( season) [facility] Start: 02-16-2022 Hepatitis C screening Hepatitis C [facility] Start: 04-06-2014 MMR Vaccines (1 of 1 - Standard series) MMR Vaccines (1 of 1 - Standard series) [facility] Start: 2008 Hearing Screening (#1) Hearing Scree kiya (#1) [facility] Start: 02-16-2007 Well Child Visit (WC V) - Annual Well Child Visit (WCV) - Annual [facility] Start: 2004 HIV screening HIV Screening [facility] Start: 2004 Lipid panel Lipid Panel [facility] Patient Education ED Chest Wall Pain, Costochondritis ED Pleurisy [facility] Work Phone: Immunizations Immunization Date Immunization Notes Care Provider Cali roger 01-27-2024 meningococcal B vacc ine, recombinant, OMV, adjuvanted Kayli Gastelum MD Work Phone: [facility] Work Phone: 06-10-2021 Pfizer-BioNTech COVI D-19 Vacc 30 MCG/0.3ML Intramuscular Suspension Kayli Gastelum Work Phone: [email or web address] [employer] Work Phone: 04-04-2021 influenza, injectabl e, quadrivalent, preservative free Kayli Gastelum Work Phone: [facility] Work Phone: 01-28-2021 meningococcal polysaccharide (groups A, C, Y and W-135) diphtheria toxoid conjugate vaccine (MCV4P) Kayli Gastelum Work Phone: [email or web address] [employer] Work Phone: 10-14-2020 Pfizer-BioNTech COVI D-19 Vacc 30 MCG/0.3ML Intramuscular Suspension Kayli Gastelum Work Phone: [email or web address] [employer] Work Phone: 09-25-2020 Pfizer-BioNTech COVI D-19 Vacc 30 MCG/0.3ML Intramuscular Suspension Kayli Gastelum Work Phone: [email or web address] [employer] Work Phone: 01-09-2020 tetanus and diphther ia toxoids, adsorbed, preservative free, for adult use (2 Lf of tetanus toxoid and 2 Lf of diphtheria toxoid); Translations: [Td (adult), adsorbed tetanus and diphtheria toxoids] Kayli Gastelum Work Phone: [facility] Work Phone: Comment on above: Series: 04-08-2019 influenza, injectabl e, quadrivalent, preservative free Kayli Gastelum Work Phone: [facility] Work Phone: 04-09-2018 Influenza, injectabl e, Madin [place] Canine Kidney, preservative free, quadrivalent Kayli Gastelum Work Phone: [facility] Work Phone: 04-09-2018 influenza virus vacc ine, unspecified formulation Kayli Gastelum MD Work Phone: [facility] Work Phone: 04-12-2017 influenza, injectabl e, quadrivalent, preservative free; Translations: [Flulaval Quadrivalent 0.5 ML Intramuscular Suspension Prefilled Syringe] Kayli Gastelum Work Phone: [facility] Work Phone: Comment on above: Series: 08-09-2016 Human Papillomavirus 9-valent vaccine; Translations: [Gardasil 9 Intramuscular Suspension] Kayli Gastelum Work Phone: [email or web address] [employer] Work Phone: Comment on above: Series: 04-27-2016 influenza, seasonal, injectable, preservative free; Translations: [Fluarix SUSP] Kayli Gastelum Work Phone: [facility] Work Phone: Comment on above: Series: 01-28-2016 hepatitis A vaccine, pediatric/adolescent dosage, 2 dose schedule; Translations: [Hepatitis A, Ped/Adol] Kayli Gastelum Work Phone: [facility] Work Phone: Comment on above: Series: 01-28-2016 Human Papillomavirus 9-valent vaccine; Translations: [Gardasil 9 Intramuscular Suspension] Kayli PhippsMigoa Work Phone: [email or web address] [employer] Work Phone: Comment on above: Series: 01-28-2016 meningococcal polysaccharide (groups A, C, Y and W-135) diphtheria toxoid conjugate vaccine (MCV4P); Translations: [Meningo (Menactra)] Kayli PhippsMigoa Work Phone: [email or web address] [employer] Work Phone: Comment on above: Series: 03-28-2015 influenza, live, intranasal, quadrivalent; Translations: [Influenza (Nasal)] Kayli PhippsMigoa Work Phone: [email or web address] [employer] Work Phone: Comment on above: Series: 02-12-2015 hepatitis A vaccine, pediatric/adolescent dosage, 2 dose schedule; Translations: [Hepatitis A, Ped/Adol] Kayli [employer] Work Phone: [email or web address] [employer] Work Phone: Comment on above: Series: 02-12-2015 tetanus toxoid, redu sheela diphtheria toxoid, and acellular pertussis vaccine, adsorbed; Translations: [Tdap (Boostrix)] Kayli PhippsMigoa Work Phone: [email or web address] [employer] Work Phone: Comment on above: Series: 03-09-2014 influenza, live, intranasal, quadrivalent; Translations: [Influenza (Nasal)] Kayli PhippsMigoa Work Phone: [email or web address] [employer] Work Phone: Comment on above: Series: 03-23-2013 influenza virus vacc ine, unspecified formulation Kayli PhippsMigoa Work Phone: [email or web address] [employer] Work Phone: Comment on above: Series: 02-23-2012 influenza virus vacc ine, unspecified formulation Kayli PhippsAvello Work Phone: [facility] Work Phone: Comment on above: Series: 03-27-2011 influenza, seasonal, injectable Kayli J Donis'Avello Work Phone: [facility] Work Phone: 06-11-2009 influenza virus vacc ine, unspecified formulation Kayli J Donis[employer] Work Phone: [facility] Work Phone: Comment on above: Series: 06-11-2009 novel influenza-H1N1 -09, preservative-free, injectable Kayli [employer] Donis[employer]Avello Work Phone: [facility] Work Phone: 05-20-2009 influenza virus vacc ine, unspecified formulation Kayli [employer] Work Phone: [facility] Work Phone: Comment on above: Series: 05-20-2009 novel influenza-H1N1 -09, preservative-free, injectable Kayli [employer] Work Phone: [facility] Work Phone: 01-02-2009 diphtheria, tetanus toxoids and acellular pertussis vaccine Kayli [employer] Work Phone: [facility] Work Phone: Comment on above: Series: 01-02-2009 measles, mumps and rubella virus vaccine Kayli J Don[employer] Work Phone: [facility] Work Phone: Comment on above: Series: 01-02-2009 poliovirus vaccine, inactivated Kayli J [employer] Work Phone: [facility] Work Phone: Comment on above: Series: 01-02-2009 varicella virus vaccine Kayli Gastelum Work Phone: [facility] Work Phone: Comment on above: Series: 08-20-2005 diphtheria, tetanus toxoids and acellular pertussis vaccine Kayli Gastelum Work Phone: [facility] Work Phone: Comment on above: Series: 08-20-2005 poliovirus vaccine, inactivated Kaylirhonda LopezNonoba Work Phone: [facility] Work Phone: Comment on above: Series: 05-21-2005 haemophilus influenz ae type b vaccine, PRP-OMP conjugate Kayli Lopezvictorino Work Phone: [facility] Work Phone: Comment on above: Series: 05-21-2005 varicella virus vaccine Kayli Gastelum Work Phone: [facility] Work Phone: Comment on above: Series: 02-19-2005 measles, mumps and rubella virus vaccine Kayli Gastelum Work Phone: [facility] Work Phone: Comment on above: Series: 02-19-2005 pneumococcal conjuga te vaccine, 7 valent Kayli Gastelum Work Phone: [facility] Work Phone: Comment on above: Series: 2004 hepatitis B vaccine, pediatric or pediatric/adolescent dosage Kaylirhonda DykesAbhishekvictorino Work Phone: [facility] Work Phone: Comment on above: Series: 2004 diphtheria, tetanus toxoids and acellular pertussis vaccine Kayli LopezNonoba Work Phone: [email or web address] [employer] Work Phone: Comment on above: Series: 2004 haemophilus influenz ae type b vaccine, PRP-OMP conjugate Kayli Lopezello Work Phone: [facility] Work Phone: Comment on above: Series: 2004 pneumococcal conjuga te vaccine, 7 valent Kaylirhonda PhippsSEDEMAC [employer]ello Work Phone: [facility] Work Phone: Comment on above: Series: 2004 pneumococcal conjuga te vaccine, 7 valent Kayli PhippsSEDEMAC [employer] Work Phone: [facility] Work Phone: Comment on above: Series: 2004 diphtheria, tetanus toxoids and acellular pertussis vaccine Kayli [employer] MoiseMigoa Work Phone: [facility] Work Phone: Comment on above: Series: 2004 haemophilus influenz ae type b vaccine, PRP-OMP conjugate Kayli [employer] Work Phone: [facility] Work Phone: Comment on above: Series: 2004 poliovirus vaccine, inactivated Kaylirhonda PhippsMigoa Work Phone: [facility] Work Phone: Comment on above: Series: 2004 diphtheria, tetanus toxoids and acellular pertussis vaccine Kayli LopezNonoba Work Phone: [facility] Comment on above: Series: 2004 haemophilus influenz ae type b vaccine, PRP-OMP conjugate Kaylirhonda PhippsMigoa Work Phone: [email or web address] [employer] Work Phone: Comment on above: Series: 2004 pneumococcal conjuga te vaccine, 7 valent Kaylirhonda LopezNonoba Work Phone: [email or web address] [employer] Work Phone: Comment on above: Series: 2004 poliovirus vaccine, inactivated Kaylirhonda [employer] Work Phone: [email or web address] [employer] Work Phone: Comment on above: Series: 2004 hepatitis B vaccine, pediatric or pediatric/adolescent dosage Kayli PhippsMigoa Work Phone: [email or web address] [employer] Work Phone: Comment on above: Series: 2004 hepatitis B vaccine, pediatric or pediatric/adolescent dosage Kaylirhonda [employer] Work Phone: [email or web address] [employer] Work Phone: Comment on above: Series: Payers Date Payer Category Payer Self-pay 2023 Private Health Insurance [facility] [id number] 2023-Present David Shepherd [address] [place] [address] [id number] 2023 Private Health Insurance [id number] 2004 Unknown [id number] 2004 Unknown [id number] 2004 Unknown [id number] Unknown [facility] Unknown [id number] Unknown [id number] Social History Date Type Detail Facility Never a smoker Never a smoker [facility] Work Phone: Tobacco smoking status NHIS Tobacco smoking consumption unknown [facility] Work Phone: Start: 2004 Sex assigned at Not on file [facility] Work Phone: Gender identity Not on file [facility] Work Phone: Start: 01-17-2024 End: 01-27-2024 Exposure to SARS-CoV-2 (event) Not sure [facility] Start: 02-26-2025 Tobacco smoking status KYIS Never smoked tobacco (finding) [facility] Start: 2004 Sex Assigned At Female W [facility] Mental Status Date Assessment Result Facility 02-26-2025 Cognitive function Voice/Name [facility] Work Phone: Discharge summary 02-26-2025 Note Date & Type Note Facility 02-26-2025 Discharge summary [facility] Discharge summary 02-26-2025 Note Date & Type Note Facility 02-26-2025 Discharge summary Note Date/Time February 26, 2025 10:21pm [facility] Medical Records Department [address] [place] [address] Emergency Department Summary 02/26/25 MR#: [id number] Acct: [id number] Name: MARYANNE MEHTA Rep #:[id number] : 2005 20 From: Reese Peralta MD PCP: OUT OF TOWN DOCTOR Status:PRE ER Location: ED HPI History of Present Illness Chief Complaint: Chest Other Detail of Chief Complaint: Left-sided chest pain with pleuritic component Informant: patient Onset/Context/Timing Onset: Hours (Approximately 3 hours prior to presentation) Activity at onset: sudden Timing: Intermittent Quality: Positive for Pain Location: Left Parasternal and Left Chest Current Severity: Gone Maximum Severity: Moderate Worsened By: Breathing Relieved By: - (Not breathing) Associated Symptoms: Negative for Nausea, Vomiting, Diaphoresis, Dyspnea, Cough,Fever, Lightheadedness, Acid Reflux or Palpitations Narrative Narrative: Patient is a 20-year-old female who presents with left-sided pleuritic pain. She points that the pain is superior to her left breast. She denies recent upper respiratory tract infection symptoms. She denies history of PE or DVT. She has no risk factors for either. She is not on hormonal therapy. She has not taken anything for it. Prior Similar Symptoms: No Recent Illness/Hospitalization: No CVD Risk Factors: Negative for Hypertension, Diabetes, Hypercholesterolemia, Family History 1' </=55 or Smoking PE Risk Factors: Negative for Recent Travel/Surgery, Recent Immobilization, Prior DVT or PE, Cancer or OCP + Smoking + >/=35 TAD Risk Factors: Negative for Marfan's Syndrome, Hypertension or Family History PFSH PFS Medical History Scoliosis Costal chondritis Home Medications ?Medication ?Instructions ?Recorded ?Last Taken ?Type meloxicam 15 mg tablet 15 mg PO DAILY 04/04/24 Unkn own History spironolactone 100 mg tablet 100 mg PO DAILY 04/04/24 Unknown History Allergy/AdvReac Type Severity Reaction Status Date / Time No Known Allergies Allergy Verified 02/26/25 21:59 Social History (Updated 02/26/25 @ 22:[address] Reese Peralta MD) household members: other details: College student Smoking Status: Never smoker ROS ROS ED Constitutional Constitutional ED: Denies chills, fever(s), subjective, sweats or weight loss ENT ENT ED: Denies ear pain, rhinorrhea or sore throat Cardiovascular Cardiovascular: Reports as per HPI; Denies orthopnea, palpitations or paroxysmalnocturnal dyspnea Respiratory/Chest Respiratory/Chest: Denies cough, dyspnea, dyspnea on exertion, orthopnea or paroxysmal nocturnal dyspnea Integumentary Denies rash Hematologic/Lymphatic Hematologic/Lymphatic: Denies easy bleeding or easy bruising EXAM Physical Exam Const Vital Signs: 02/26/25 22:00 Temperature 98.2 F Temperature Source Temporal Pulse Rate 92 Respiratory Rate 18 Blood Pressure 128/88 H Blood Pressure Mean 101 Pulse Ox 100 Oxygen Delivery Method Room Air Positive well nourished and well developed General Appearance ED: well developed and NAD HEENT Reports moist mucous membranes normocephalic and atraumatic Eyes PERRL and EOMs intact bilaterally General Eye ED: Negative for pale conjunctiva or scleral icterus Neck no lymphadenopathy and no JVD Chest Wall inspection of chest normal and palpation of chest normal Chest Narrative: There is pain outpatient 4th and 5th intercostal space on the left. This area is more tender than the area she pointed to. Resp normal respiratory effort and clear to auscultation bilaterally Resp Narrative: There is no friction rub. Breath sounds are symmetric and there is no rales, rhonchi or wheezing. There is no crepitus. Cardio regular rate, regular rhythm, S1 normal heart sound, S2 normal heart sound and no murmurs Extremity normal to inspection Neuro oriented x3 and CN's II-XII intact bilaterally Sensorium / Orientation: awake and alert Psych mental status grossly normal Skin no rashes or lesions noted and no wounds MDM MDM MDM Narrative Medical decision making narrative: Differential diagnosis pleurisy, costochondritis, PE, pneumonia. Since patient has normal vital signs based on study was published several decades ago no patient had had normal heart rate, respiratory rate, temperature and pulse ox was found to have infiltrate on x-ray therefore x-ray was not obtained. Patientis PERC negative and Wells score is 0. Therefore D-dimer was not obtained nor was there pursued to rule out PE since she is PERC negative and Wells score is 0. Since pain is reproducible there is a pleuritic component suspect this is costochondritis versus pleurisy. Treatment is the same and sats. She has no contraindication to NSAIDs. She does not have any ibuprofen or Aleve at her residence. She was given a dose of Naprosyn in the department. She was discharged to home safely and instructed the proper dose of ibuprofen or Aleve since it would be cheaper to purchase the medication as an OTC versus prescription. Differential Diagnosis Chest pain/SOB: pneumothorax Reason(s) pneumothorax less likely: Positive for bilateral breath sounds Discharge Plan Triage Chief Complaint: Chest Other ED Provider: FabianReese Dx/Rx/DC Orders Clinical Impression: Acute costochondritis Instructions: ED Chest Wall Pain, Costochondritis, ED Pleurisy Prescriptions: No Action meloxicam 15 mg tablet 15 mg PO DAILY spironolactone 100 mg tablet 100 mg PO DAILY Primary Care Provider: Hermilo Stone,Out of Referrals: Long break [Other] [facility] [Group of Physicians] - 3-5 Days if not improving [facility] Doctor,Out of [Primary Care Provider] - Activity Restrictions/Additional Instructions: The dose of ibuprofen for you is 3 tablets every 8 hours for the next 3 to 5 days. If you purchase Aleve it would be 2 tablets every 12 hours for the next 3to 5 days. Print Language: Nepali Disposition Disposition: Home, Self Care What to do if you have Problems For any increased pain, shortness of breath, bleeding, nausea or vomiting, chestpain, or any unexpected problems, contact your Primary Care Provider. Call [facility] ([phone]) or report to the closest Emergency Room. Call 911 if necessary. 02/26/252220 <Electronically signed by Reese Peralta MD> Cosigner Signature (if applicable): CC: ~ Signed [facility] Work Phone: Hospital Discharge instructions 02-26-2025 Note Date & Type Note Facility 02-26-2025 Hospital Discharg e instructions Additional Instructions The dose of ibuprofen for you is 3 tablets every 8 hours for the next 3 to 5 days. If you purchase Aleve it would be 2 tablets every 12 hours for the next 3 to 5 days. [facility] Work Phone: History of Present illness Narrative 01-27-2024 Kayli Gastelum MD - 01/27/2024 9:00 AM EDT Note Date & Type Note Facility 01-27-2024 History of Present illness Narrative HPI Concerns: She was recently seen by a clam grower here for follow-up. She had been having chest pain. Working diagnosis is now costochondritis. She did have a full workup by cardiology here which was negative. She is active in sports and plays field hockey at the [employer]. 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 Activities: plays field hockey Eating: She is a healthy eater. She usually does not skip meals. Dental Care: Routine. Sleep: sleep is 7-8 hours. Menstrual Status: periods are regular, no cramping or last about 6-7 days. Safety: Seatbelt in the car, appropriate safety equipment for support Risk Assessment: She is not sexually active. She does not smoke or vape. She does not drink. Her depression and anxiety score are negative. Review of Systems All other systems are reviewed and are negative Physical Exam General Appearance: Well developed, well nourished in no distress. She is athletic and fit in her appearance HEAD: Normocephalic, atramatic. EYES: Conjunctiva and sclera clear. PERRL. Extraocular muscles normal. EARS: TM's clear. NOSE: Clear. THROAT: No erythema, no exuate. NECK: Supple, no adenopathy. CHEST: Normal without deformity. PULMONARY: No grunting, flaring, retracting. Lungs CTA. Equal breath sounds bilateraly. CARDIOVASCULAR: Normal RRR, normal S1 and S2 without murmur. Normal pulses. Heart rate is 68 and regular ABDOMEN: Soft, non-tender, no masses, no hepatosplonomegaly. GENITOURINARY: Luis V MUSCULOSKELETAL: Normal strength, normal range of motion. No significant scoliosis. SKIN: He has hypopigmentation on her back and chest she has been to a fac engineer which diagnosed her with tinea versicolor but she used the medicine and when she quit it came back NEUROLOGIC: CN II - XII intact. Normal DTR. Normal gait. PSYCHIATRIC -normal mood and affect. There are no diagnoses linked to this encounter. Diagnoses and all orders for this visit: Encounter for well adolescent visit with abnormal findings - CBC and Auto Differential; Future - Comprehensive metabolic panel; Future - Vitamin D 25-Hydroxy,Total (for eval of Vitamin D levels); Future Tinea versicolor Need for vaccination Costochondral chest pain Other orders - Meningococcal B vaccine (BEXSERO) documented in this encounter [facility] Work Phone: Evaluation note Note Date & Type Note Facility Evaluation note Diagnosis Encounter for well adolescent visit with abnormal findings- Primary Tinea versicolor Pityriasis versicolor Need for vaccination Need for prophylactic vaccination and inoculation against unspecified single disease Costochondral chest pain documented in this encounter [facility] Work Phone: Evaluation note Note Date & Type Note Facility Evaluation note No assessment information [facility] Work Phone: History of Present illness Narrative Note Date & Type Note Facility History of Present illness Narrative 1 day history of cough, sore throat. No fever. She said she does not feel very congested. No headache or body aches. No vomiting or diarrhea. Appetite is still good. She is urinating normally. No Covid exposures known. She wants to be tested before she goes back to school. [facility] Work Phone: Reason for referral (narrative) Note Date & Type Note Facility Reason for referral (narrative) No reason for referral information available [facility] Work Phone: Summary Purpose Family History Unknown Family Member Name Dates Details Family history of reactive a irway disease: Sister(V17.5, Z82.5) Status:Active Unknown Family Member Name Dates Details Family history of reactive a irway disease: Sister(V17.5, Z82.5) Status:Active Unknown Family Member Name Dates Details Family history of reactive a irway disease: Sister(V17.5, Z82.5) Status:Active Advance Directives Advance Directive Response Recorded Date/ Time Do you have a Healthcare Power of Tumbler Machine Operator Helper? No February 26, 2025 10:36pm Chief Complaint * ChiefComplaintFreeTextNoteForm_UH: * sore throat and cough started yesterday Chief Complaint and Reason for Visit Chief Complaint Admit Date chest other February 26, 2025 9:59pm Additional Source Comments INFORMATION SOURCE (unrecogn ized section and content) DATE CREATED AUTHOR 10/19/2020 [facility] DATE CREATED AUTHOR AUTHOR'S ORGANIZ ATION 06/24/2021 [employer] DATE CREATED AUTHOR AUTHOR'S ORGANIZ ATION 01/24/2024 [facility] DATE CREATED AUTHOR AUTHOR'S ORGANIZ ATION 01/29/2024 [facility] DATE CREATED AUTHOR AUTHOR'S ORGANIZ ATION 04/27/2024 [facility] Reason for Visit (unrecogniz ed section and content) Reason Comments Well Child College Sports Pe Care Teams (unrecognized sec tion and content) Respiratory Medicine Physician Relationship Specialty Start Date End Date Kayli Gastelum MD [address] [facility] [place] [address] PCP - General 01/18/21 Beatrice Kimble MD [address] [facility] [place] [address] PCP - [place] [facility] PCP 06/20/21 Team Status: Active Member Role/Relationship Status Dates No Primary Care Physician Primary Care Provider Active Team Status: Inactive Member Role/Relationship Status Dates Dr. Reese Peralta MD Emergency Provider Active Sta rt: February 26, 2025 End: February 26, 2025 No Primary Care Physician Primary Care Provider Active Start: February 26, 2025 End: February 26, 2025 Goals (unrecognized section and content) Goals may be documented in a n alternate section FOR RECORDS PERTAINING TO PATIENTS WHO ARE OR HAVE BEEN ENROLLED IN A CHEMICAL DEPENDENCY/SUBSTANCEABUSE PROGRAM, SOME INFORMATION MAY BE OMITTED. This clinical summary was aggregated from multiple sources. Caution should be exercised in using it in the provision of clinical care. This summary normalizes information from multiple sources, and as a consequence, information in this document may materially change the coding, format and clinical context of patient data. In addition, data may be omitted in some cases. CLINICAL DECISIONS SHOULD BE BASED ON THE PRIMARY CLINICAL RECORDS. [email or web address] [facility]. provides no warranty or guarantee of the accuracy or completeness of information in this document.
== END 2025-02-26 22:39 | disposition home or self-care (01) ==
LOC: ED 22:36
PROVIDERS: Emergency Provider Emergency Medicine; Visit Provider Emergency Medicine
DX: M94.0 Chondrocostal junction syndrome [Tietze] (principal); M41.9 Scoliosis, unspecified
CPT/HCPCS: 99282

== ENCOUNTER 2025-05-20 12:22 | Emergency (ER) | payer BC, SELFPAY ==
[2025-05-20 12:23] VITALS: BP 125/95; PULSE 77; RESP 16; TEMP 36.7; O2SAT 100
[2025-05-20] MEDS: 0.9% Normal Saline (1000mL) 1,000 ML 1000 ML IV (13:23)
[2025-05-20 13:33] LABS: Hematocrit 41.7 % (37-47); Hemoglobin 14.1 g/dL (12.0-15.0); Immature Granulocytes Count 0.020 X10^3/uL (0.0-0.0); Mean Corp Hgb Conc 33.8 g/dL (32-36); Mean Corpuscular Volume 87.8 fL (81-99); Mean Platelet Vol. 9.8 fl (6.2-12.0); NRBC Flagged by Analyzer 0 % (0-5); Platelet Count 256 K/mm3 (150-450); RBC Distribution Width CV 11.9 % (11.6-14.6); RBC Distribution Width SD 38.2 fl (35.1-43.9); Red Blood Count 4.75 M/mm3 (4.2-5.4); White Blood Count 7.8 K/mm3 (4.4-11.0)
--- NOTE | 2025-05-20 13:40 | RAD_ITS ---
PROCEDURE: CHEST PA AND LATERAL 05/20/2025 REASON FOR EXAM: COUGH TECHNIQUE: Procedure Code: RADCXR Modality: DX Procedure: CHEST PA AND LATERAL COMPARISON: None FINDINGS: Hardware: None Heart: The heart size is normal. Mediastinum: The mediastinal contour is unremarkable. Lungs: Hyperinflation. The lungs are clear. Bones: Levoconvex scoliosis. RAD/Chest PA and Lateral IMPRESSION: NO ACUTE FINDINGS. Levoconvex scoliosis of the proximal thoracic spine. Reading Location: [facility]
[2025-05-20 13:50] LABS: Internal QC Validated? YES +Cl - CLEAR BKGD; Record Kit Lot#, Mono 16251077
[2025-05-20 13:53] LABS: AST(SGOT) 28 U/L (<=31); Alanine Aminotransfer ALT/SGPT 12 U/L (<=34); Albumin, Serum 4.6 g/dL (3.5-5.0); Alkaline Phosphatase 54 U/L (35-104); Anion Gap 11 (5-15); BUN 16 mg/dL (4-19); BUN/Creat Ratio 20.1 RATIO (10-20); Calcium,Total 9.9 mg/dL (7.6-11.0); Carbon Dioxide 24.2 mmol/L (21.0-32.0); Chloride 103 mmol/L (98-108); Estimated Creatinine Clearance 96.33 ml/min (50-250); Globulin 3.2 g/dL (2.2-4.2); Glucose 102 mg/dL (70-99); Potassium 4.0 mmol/L (3.3-5.1)
[2025-05-20 14:33] VITALS: BP 115/69; PULSE 90; RESP 16; O2SAT 100
[2025-05-20 14:55] VITALS: BP 115/69; PULSE 90; RESP 16; TEMP 36.6; O2SAT 100
--- NOTE | 2025-05-20 15:05 | EDS_ITS ---
HPI History of Present Illness Chief Complaint: Dizziness Informant: patient Narrative Narrative: 20-year-old college [place] student presenting to the room with lightheadedness and feeling ill. Patient states that she feels ill quite 1 week ago. She states that she lost her voice. She has developed a cough. No reported fevers. She has decreased p.o. intake yesterday and felt a little dehydrated this morning. She has been feeling episodes of nausea and lightheadedness often while walking make her feel like she is going to pass out. She denies any rash. Mild nasal congestion. No significant sore throat. Notes that she has some costochondritis and wonders if her left chest is hurting because of the cough and costochondritis. No diarrhea. PFSH PFSH Medical History Scoliosis Costal chondritis Medical History unable to obtain Home Medications ?Medication ?Instructions ?Recorded ?Last Taken ?Type spironolactone 100 mg tablet 100 mg PO DAILY 04/04/24 05/19/25 History meclizine 25 mg tablet (Dramamine 50 mg PO DAILY 05/2005/20/25 History (meclizine)) Allergy/AdvReac Type Severity Reaction Status Date / Time No Known Allergies Allergy Verified 05/20/25 12:24 Family History unable to obtain Surgical History unable to obtain Social History household members: other details: College student Smoking Status: Never smoker ROS ROS ED ROS Narrative Lightheadedness Constitutional Constitutional ED: Denies chills, fever(s) or weight loss Eyes Eyes: Denies change in vision or diplopia ENT ENT ED: Reports rhinorrhea and other Details: Lost her voice ; Denies ear pain or sore throat Cardiovascular Cardiovascular: Reports chest pain; Denies orthopnea, palpitations or racing heartbeat Respiratory/Chest Respiratory/Chest: Reports cough; Denies dyspnea or orthopnea Gastrointestinal Gastrointestinal: Reports nausea; Denies abdominal pain, diarrhea or vomiting Genitourinary Genitourinary ED: Denies dysuria, hematuria or urinary frequency Musculoskeletal Musculoskeletal: Denies arthralgias or myalgias Integumentary Denies abscess or rash Neurologic Neurologic: Denies headache(s) or weakness Psychiatric Psychiatric: Denies anxiety, depression, suicidal ideation or suicidal thoughts Endocrine Endocrinology: Denies polydipsia, polyphagia or polyuria Allergic/Immunologic Allergic/Immunologic ED: Denies mouth swelling, tongue swelling or urticaria EXAM Physical Exam Const Vital Signs: 05/20/25 12:23 05/20/25 14:33 05/20/25 14:55 Temperature 98.1 F 98 F Temperature Source Oral Pulse Rate 77 90 90 Respiratory Rate 16 16 16 Blood Pressure 125/95 H 115/69 115/69 Blood Pressure Mean 105 84 84 Pulse Ox 100 100 100 Oxygen Delivery Method Room Air Room Air Positive well nourished and well developed General Appearance ED: well developed and NAD HEENT Reports normocephalic, head/scalp atraumatic and moist mucous membranes HEENT Narrative: Mild turbinate edema Eyes PERRL and EOMs intact bilaterally Neck supple and no JVD Neck Narrative: There are some palpable lymph nodes in both the anterior and posterior chain particularly on the right. Resp normal respiratory effort and clear to auscultation bilaterally Cardio regular rate, regular rhythm and no murmurs GI normal to inspection, nondistended, normoactive bowel sounds and non-tender Palpation: soft Back/Spine no CVA tenderness and normal ROM Extremity normal to inspection General Extremety ED: Negative for edema General Extremity: Negative for edema Neuro oriented x3 and CN's II-XII intact bilaterally Sensorium / Orientation: alert Motor Exam: strength 5/5 throughout Psych mental status grossly normal Mood & Affect: Negative for depressed or tearful Skin no rashes or lesions noted and no wounds MDM MDM MDM Narrative Medical decision making narrative: Differential diagnosis includes viral laryngitis streptococcal pharyngitis dehydration electrolyte abnormalities mononucleosis vasovagal near syncope hypotension Basic blood work shows a white count of 7.8 with 77.5 neutrophils 13.8 lymphocytes. CMP shows a glucose of to normal liver enzymes. Monoscreen is negative. I depend interpretation of the chest x-ray is no acute process. Patient received a liter of IV fluids. Clinically the patient most likely has a viral syndrome. She may be experiencing some vasovagal near syncope associated with the nausea. Would recommend oral hydration and rest. Follow-up with primary care return if worsening or concerns History & Record Review Discussion w/independent historian: Patient Lab Data Attestation: I reviewed the patient's lab results. Labs: Laboratory Results - last 24 hr 05/20/25 13:25 WBC 7.8 RBC 4.75 Hgb 14.1 Hct 41.7 MCV 87.8 MCH 29.7 MCHC 33.8 RDW Std Deviation 38.2 RDW Coeff of Laverne 11.9 Plt Count 256 MPV 9.8 Immature Gran % (Auto) 0.300 Neut % (Auto) 77.5 H Lymph % (Auto) 13.8 L Cassia % (Auto) 6.9 Eos % (Auto) 0.9 Baso % (Auto) 0.6 Absolute Neuts (auto) 6.1 Absolute Lymphs (auto) 1.08 Nucleated RBC % 0 Sodium 138 Potassium 4.0 Chloride 103 Carbon Dioxide 24.2 Anion Gap 11 BUN 16 Creatinine 0.77 Estim Creat Clear Calc 96.33 Est GFR (MDRD) Non-Af 112 BUN/Creatinine Ratio 20.1 H Glucose 102 H Calcium 9.9 Total Bilirubin 0.50 AST 28 ALT 12 Alkaline Phosphatase 54 Total Protein 7.7 Albumin 4.6 Globulin 3.2 Albumin/Globulin Ratio 1.4 Monoscreen Negative Radiography Diagnostic Testing: Clinical Impression(s) from Imaging Studies Chest X-Ray 05/20/25 13:40 IMPRESSION: NO ACUTE FINDINGS. Levoconvex scoliosis of the proximal thoracic spine. Reading Location: [place] [id number] Discharge Plan Triage Chief Complaint: Dizziness ED Provider: Frank Toussaint Dx/Rx/DC Orders Clinical Impression: Laryngitis, Acute viral syndrome Instructions: ED Laryngitis, ED Near-Fainting- Vagal Reaction, ED Viral Syndrome (Adult) Prescriptions: No Action spironolactone 100 mg tablet 100 mg PO DAILY meclizine [Dramamine (meclizine)] 25 mg tablet 50 mg PO DAILY Patient Comments: received at the [facility] Primary Care Provider: Care Physician,No [facility] - 3-5 Days if not improving Care Physician,No Primary [Primary Care Provider, Medical] Print Language: [place] Disposition Disposition: Home, Self Care Discharge Date/Time: 05/20/25 14:58
== END 2025-05-20 14:58 | disposition home or self-care (01) ==
PROVIDERS: Emergency Provider Emergency Medicine; Visit Provider Emergency Medicine
DX: J04.0 Acute laryngitis (principal); M41.9 Scoliosis, unspecified; B34.9 Viral infection, unspecified
CPT/HCPCS: 71046; 80053; 85025; 86308; 96360; 96361; 99284; A4216